=== PATIENT | female | born 1935 | race American Indian/Alaskan Native ===

== ENCOUNTER 2017-02-08 08:06 | Outpatient (CLI) | payer MEDICARE ==
--- NOTE | 2017-02-08 13:00 | Cat Scan Report ---
CT ABDOMEN AND PELVIS WITH CONTRAST: 02/08/17 08:06:00 CLINICAL: Right lower quadrant abdominal pain and followup pancreatic cyst. COMPARISON: 08/19/16 TECHNIQUE: Volumetric acquisition and 1.25 millimeter scan reconstructions after the uneventful intravenous injection of 100 cc Omnipaque 300. Consent was obtained prior to the administration of contrast. Oral contrast was also given. FINDINGS: Abdomen: Clear lung bases.Normal liver, bile ducts and gallbladder. Normal stomach, duodenum and spleen. Stable cyst of the distal pancreatic body measuring 1.4 x 1.3 cm. No apparent enhancement. The pancreatic duct is mildly dilated and measures 3 mm. No peripancreatic fluid or inflammatory changes. No pancreatic calcifications. Normal adrenal glands and kidneys. The renal collecting systems and ureters are nondilated. Normal aorta and inferior vena cava. Normal small bowel.The colon is filled with stool. Mild diverticulosis of the sigmoid colon but otherwise normal colon. No signs of diverticulitis. An appendix is not identified. No mass, lymphadenopathy or ascites.No pneumoperitoneum. Pelvis: Normal urinary bladder.Absence of the uterus a normal vaginal cuff. Normal rectum. Mild sigmoid diverticulosis but no signs of diverticulitis. Ovaries are not identified. No adnexal mass or free fluid. Bone windows demonstrate no suspicious bone lesion. Osteopenia and postoperative changes in the lumbar spine. Status post posterior fusion at L5-S1. IMPRESSION:1. Stable 1.4 cm pancreatic cyst. 2. Mild diverticulosis of the sigmoid colon but no diverticulitis. 3. Status post hysterectomy and appendectomy. 4. No explanation for right lower quadrant pain.
--- NOTE | 2017-02-08 14:10 | Cat Scan Report ---
CT RIGHT HIP WITHOUT CONTRAST: 02/08/17 CLINICAL: Right hip pain. TECHNIQUE: Volumetric acquisition and axial 1.25-mm scan reconstructions of the hip and pelvis without contrast. Sagittal and coronal reformats were performed. FINDINGS: Diffuse osteopenia. No fracture or dislocation. Arthritis with medial and inferior joint space narrowing with a prominent inferior osteophyte. A small superolateral osteophyte.No suspicious bone lesion. Normal soft tissues. Specifically, the muscles about the right hip are normal size with normal density. No joint effusion no extra articular fluid collection. Absence of the uterus and normal vaginal cuff. Urinary bladder, rectum and sigmoid colon are normal. The imaged portions of small bowel and colon are normal. Status post posterior lumbar fusion at L4-5. 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
== END 2017-02-08 08:07 | disposition home or self-care (01) ==
LOC: SPVIMAG 08:06
PROVIDERS: ATTEND Internal Medicine Gastroenterology
DX: M13.851 Other specified arthritis, right hip (principal); M85.88 Other specified disorders of bone density and structure, other site; M25.751 Osteophyte, right hip; M43.26 Fusion of spine, lumbar region; K86.2 Cyst of pancreas; K57.30 Diverticulosis of large intestine without perforation or abscess without bleeding; Z90.710 Acquired absence of both cervix and uterus
CPT/HCPCS: 73700; 74177; Q9967

== ENCOUNTER 2017-12-23 10:33 | Outpatient (CLI) | payer MEDICARE ==
--- NOTE | 2017-12-23 15:02 | XRay Report ---
Chest 2 views: Compared to 09/08/16. History: Cough. Findings: Evidence of emphysema. Trachea is midline. Normal-sized heart. Bilateral paratracheal calcification. Prominence of right and left hilum probably related to COPD. No significant interval change. No obvious evidence of consolidation. Impression: No significant interval change.
--- NOTE | 2017-12-23 15:04 | XRay Report ---
Lumbar spine 3 views: History: Back pain. Findings: Stable posterior rods with interpedicular screws at L4 and L5. Normal height of vertebral bodies. Decrease in height of L3-L4 and L5-S1 with severe degenerative changes at the adjacent endplates. L4-L5 disc this is stabilized by fixing device. No acute fracture. Impression: Findings as detailed above.
== END 2017-12-23 10:34 | disposition home or self-care (01) ==
LOC: SPVIMAG 10:33
DX: M47.896 Other spondylosis, lumbar region (principal); J43.9 Emphysema, unspecified
CPT/HCPCS: 71046; 72100